=== PATIENT | female | born 1965 | race Caucasian/White ===

== ENCOUNTER 2018-01-21 12:46 | Emergency (ER) | payer OTHER ==
[~2018-01-21] VITALS: Ht 157.5 cm; Wt 68.0 kg
--- NOTE | ~2018-01-21 | EKG ---
[place] [address] [facility] [place] [address] ELECTROCARDIOGRAM REPORT Name: CATHRYN GA Room #: [facility]#: [id number] Admission: 01/21/18 Attend Phys: Discharge: 01/21/18 Date of : 69 Report #: [id number] THIS REPORT FOR: //name// [facility] ED Test Date: 2018-01-21 Test Time: 12:52:57 Pat Name: CATHRYN GA Department: Room: Gender: F Director Digital Catalogue: JLAMBZULEMAZ : 1965 Requested By: Alex James Order Number: [id number] MD: Jaquan Langford Measurements Intervals [place] Rate: 81 P: 58 NV: 156 QRS: 63 QRSD: 99 T: 50 QT: 350 QTc: 407 Interpretive Statements Sinus rhythm Minimal nonspecific ST segment abnormality No previous ECG available for comparison Electronically Signed On 01-22-2018 10:46:48 [employer] by Jaquan Langford [email or web address] <ELECTRONICALLY SIGNED> By: Jaquan Langford MD, [facility] 01/22/18 1046 1252 1252 Jaquan Langford MD, FACC /EPI
[2018-01-21] MEDS ORDERED: NOHOMEMEDICATIONS (12:50)
[2018-01-21 14:06] LABS: ANION GAP 7 mmol/L (7-16); BUN 11 mg/dL (7-18); CALCIUM 9.8 mg/dL (8.5-10.1); CHLORIDE 104 mmol/L (98-107); CO2 27 mmol/L (21-32); GLUCOSE 94 mg/dL (74-106); POTASSIUM 3.9 mmol/L (3.5-5.1); SODIUM 138 mmol/L (136-145)
[2018-01-21 14:12] LABS: ABSOLUTE NEUTROPHILS 6.9 thou/uL (1.4-8.2); BASOPHILS 0.7 % (0.0-2.0); EOSINOPHILS 0.5 % (0.0-3.0); HEMATOCRIT 39.4 % (37.0-47.0); HEMOGLOBIN 13.8 gm/dL (12.0-15.0); LYMPHOCYTES 26.9 % (24.0-44.0); MCH 30.4 pg (26.0-34.0); MCHC 35.1 g/dL (28.0-37.0); MCV 86.6 fL (80.0-100.0); MONOCYTES 8.6 % (1.0-8.0); PLATELET COUNT 243 thou/uL (150-400); POLYS 63.3 % (36.0-66.0); RBC 4.55 mil/uL (4.20-5.00); RDW 13.4 % (10.5-14.5); WBC 10.9 thou/uL (4.0-11.0)
[2018-01-21 14:13] LABS: TROPONIN-I <0.06 ng/mL (<0.06)
[2018-01-21 17:35] VITALS: BP 96/61
== END 2018-01-21 17:36 | disposition home or self-care (01) ==
LOC: ER 12:46
PROVIDERS: Physician Assistant
DX: R07.89 Other chest pain (principal); M79.7 Fibromyalgia; F17.210 Nicotine dependence, cigarettes, uncomplicated; K58.9 Irritable bowel syndrome, unspecified; F41.9 Anxiety disorder, unspecified; F32.9 Major depressive disorder, single episode, unspecified